=== PATIENT | female | born 1955 | race Caucasian/White ===

== ENCOUNTER 2017-04-23 08:15 | Emergency (ER) | payer OTHER ==
[~2017-04-23] VITALS: Ht 167.6 cm; Wt 59.0 kg
--- NOTE | 2017-04-23 08:37 | NUR ---
MD is at bedside evaluating the patient.
--- NOTE | 2017-04-23 08:53 | NUR ---
Patient is still for x-rays. Discharged papers were given by MD himself. Patient is for discharge to home . Written and verbal after care instructions given to patient. Patient verbalizes understanding of instructions. Patient is in stable condition.
--- NOTE | 2017-04-23 09:48 | NUR ---
Patient discharged to home in stable conditon. Copies of all the x-rays are provided to patient.
== END 2017-04-23 09:49 | disposition home or self-care (01) ==
LOC: ER 08:15
DX: S50.11XA Contusion of right forearm, initial encounter (principal); W18.30XA Fall on same level, unspecified, initial encounter; Y93.23 Activity, snow (alpine) (downhill) skiing, snowboarding, sledding, tobogganing and snow tubing; Y92.89 Other specified places as the place of occurrence of the external cause; Y99.8 Other external cause status
CPT/HCPCS: 73030; 73080; 73110; 99284; A4663